=== PATIENT | female | born 1990 | race Caucasian/White ===

== ENCOUNTER 2017-10-05 19:25 | Emergency (ER) | payer BC ==
--- NOTE | 2017-10-05 19:33 | PDOC ---
Rapid Medical Evaluation Time Seen by Provider: 10/05/17 19:29 Medical Evaluation: 10/05/17 19:29 I have performed a brief in-person evaluation of this patient. The patient presents with a chief complaint of: with lower abdominal pain and vaginal bleeding Pertinent physical exam findings: deferred I have ordered the following: CBC, CMP, Beta HCG, TVUS, UA, Urine cx The patient will proceed to the ED for further evaluation. Discharge Disposition - Diagnosis Vaginal bleeding - Referrals - Patient Instructions - Post Discharge Activity
[2017-10-05 19:34] VITALS: BP 115/70; PULSE 90; TEMP 98.6; BMI 22.8
[2017-10-05 20:20] LABS: BASO % 0.4 % (0-2.0); EOS % 3.4 % (0-4.5); HEMATOCRIT 29.2 % (32.4-45.2); HEMOGLOBIN 9.8 GM/dL (10.7-15.3); LYMPH % 27.7 % (8-40); MCH 27.9 pg (25.7-33.7); MCHC 33.6 g/dl (32.0-36.0); MEAN CELL VOLUME 82.9 fl (80-96); MEAN PLT VOLUME 10.5 fl (7.5-11.1); MONO % 9.3 % (3.8-10.2); NEUT % 59.2 % (42.8-82.8); PLATELET COUNT 183 K/MM3 (134-434); RBC 3.52 M/mm3 (3.60-5.2); WHITE BLOOD COUNT 7.6 K/mm3 (4.0-10.0)
[2017-10-05 20:24] LABS: URINE APPEARANCE CLEAR; URINE BILIRUBIN NEGATIVE (<2.0 mg/dL); URINE COLOR STRAW; URINE GLUCOSE (UA) NEGATIVE (NEGATIVE); URINE KETONE NEGATIVE (NEGATIVE); URINE LEUK ESTERASE NEGATIVE (NEGATIVE); URINE NITRITE NEGATIVE (NEGATIVE); URINE PROTEIN NEGATIVE (NEGATIVE); URINE UROBILINOGEN NEGATIVE mg/dL (0.2-1.0)
[2017-10-05 20:27] LABS: EPI CELLS RARE /HPF (FEW); URINE MUCUS RARE
[2017-10-05 20:54] LABS: ALBUMIN 4.1 g/dl (3.4-5.0); ANION GAP 5 (8-16); BILIRUBIN,TOTAL 0.3 mg/dL (0.2-1.0); BLOOD UREA NITROGEN 10 mg/dL (7-18); CALCIUM 8.8 mg/dL (8.5-10.1); CHLORIDE 108 mmol/L (98-107); CO2 26 mmol/L (21-32); CREATININE 0.5 mg/dL (0.55-1.02); GLUCOSE,RANDOM 84 mg/dL (74-106); POTASSIUM 4.1 mmol/L (3.5-5.1); SGOT/AST 12 U/L (15-37); SGPT/ALT 16 U/L (12-78); SODIUM 139 mmol/L (136-145); TOT PROT 7.7 g/dl (6.4-8.2)
[2017-10-05 21:11] LABS: ALK PHOS 48 U/L (45-117)
--- NOTE | 2017-10-05 22:27 | PDOC ---
History of Present Illness - General Chief Complaint: Vaginal Bleeding Stated Complaint: VAGINAL BLEEDING () Time Seen by Provider: 10/05/17 19:29 History Source: Patient Exam Limitations: No Limitations - History of Present Illness Travel History: No Initial Comments: 10/05/17 22:22 This is a 27-year-old prima female who presents emergency Department with 3-4 days of lower abdominal cramping and vaginal bleeding. She reports she' s been using one pad daily and her bleeding is consistent with her usual menstrual period. Patient states she has irregular menses with the last menstrual period on 07/25. Patient states she was unable scheduled appointment with her director of contracts and visited [facility] approximately one week ago and was told she was at that time. Patient had positive home test and is a positive beta hCG with [facility] but does not remember the number. Patient states ultrasound and a [facility] did not show an IUP at that time. Past History - Past Medical History Allergies/Adverse Reactions: Allergies Allergy/AdvReac Type Severity Reaction Status Date / Time No Known Allergies Allergy Verified 10/05/17 19:30 Home Medications: Ambulatory Orders NK [No Known Home Medication] 10/05/17 COPD: No - Surgical History Cholecystectomy: Yes - Suicide/Smoking/Psychosocial Hx Smoking History: Never smoked Review of Systems - Review of Systems Able to Perform ROS?: Yes Is the patient limited [place] proficient: No Constitutional: No: Symptoms Reported HEENTM: No: Symptoms Reported Respiratory: No: Symptoms reported Cardiac (ROS): Yes: Palpitations. No: Symptoms Reported : No: Symptoms Reported Musculoskeletal: No: Symptoms Reported Integumentary: No: Symptoms Reported Neurological: No: Symptoms reported *Physical Exam - Vital Signs Last Vital Signs Temp Pulse Resp BP Pulse Ox 98.6 F 90 16 115/70 100 10/05/17 19:33 10/05/17 19:33 10/05/17 19:33 10/05/17 19:33 10/05/17 19:33 - Physical Exam General Appearance: Yes: Appropriately Dressed. No: Apparent Distress HEENT: positive: Normal ENT Inspection Neck: positive: Trachea midline, Supple Respiratory/Chest: positive: Lungs Clear, Normal Breath Sounds. negative: Respiratory Distress, Accessory Muscle Use Cardiovascular: positive: Regular Rhythm, Regular Rate, S1, S2. negative: Edema , Murmur Gastrointestinal/Abdominal: positive: Normal Bowel Sounds, Soft. negative: Tender Musculoskeletal: positive: Normal Inspection. negative: CVA Tenderness Extremity: positive: Normal Capillary Refill, Normal Inspection. negative: Normal Range of Motion, Tender Integumentary: positive: Normal Color, Dry, Warm Neurologic: positive: Alert, Normal Response ED Treatment Course - LABORATORY CBC & Chemistry Diagram: 10/05/17 19:46 10/05/17 19:46 - ADDITIONAL ORDERS Additional order review: Laboratory Results 10/05/17 10/05/17 19:54 19:46 Sodium 139 Potassium 4.1 Chloride 108 H Carbon Dioxide 26 Anion Gap 5 L BUN 10 Creatinine 0.5 L Creat Clearance w eGFR > 60 Random Glucose 84 Calcium 8.8 Total Bilirubin 0.3 AST 12 L ALT 16 Alkaline Phosphatase 48 Total Protein 7.7 Albumin 4.1 Beta HCG, Quant 1389.9 Urine Color Straw Urine Appearance Clear Urine pH 8.0 Ur Specific Triplett 1.009 Urine Protein Negative Urine Glucose (UA) Negative Urine Ketones Negative Urine Blood 3+ H Urine Nitrite Negative Urine Bilirubin Negative Urine Urobilinogen Negative Ur Leukocyte Esterase Negative Urine WBC (Auto) 5 Urine RBC (Auto) 133 Ur Epithelial Cells Rare Urine Mucus Rare 10/05/17 19:46 RBC 3.52 L MCV 82.9 MCHC 33.6 RDW 15.0 MPV 10.5 Neutrophils % 59.2 Lymphocytes % 27.7 Monocytes % 9.3 Eosinophils % 3.4 Basophils % 0.4 - RADIOLOGY Radiology Studies Ordered: Category Date Time Status TRANSVAGINAL US PREG [US] Stat Ultrasound 10/05/17 19:31 Taken Medical Decision Making - Medical Decision Making 10/05/17 22:38 A/P: 27-year-old prima with lower abdominal cramping and vaginal bleeding for the past 4 days blood with clots noted in vaginal vault. Cervical os is closed No adnexal tenderness No CMT Labs, transvaginal ultrasound 10/05/17 22:39 H&H is 9.8/29.7 Beta-HCG 1389.9 UA with blood noted 10/05/17 22:45 Transvaginal ultrasound is read by Dr. Meraz: No intrauterine gestational sac is identified. Right adnexal masslike density measuring 3.2 x 2.2 cm with small focal hypoechoic/anechoic center. No pole is identified. Findings are suspicious for ectopic . However correlation with serial quantitative beta hCGs and follow-up ultrasound was recommended for further evaluation. Patient is COOKER TENDER is Dr. Boyce. We'll contact Dr. Boyce. 10/05/17 23:[address] Han who recommends methotrexate 50 mg per BSA. I will give the patient methotrexate as prescribed. Blood type O+. Patient instructed to return to emergency department on Tuesday for repeat beta testing, keep her appointment with Dr. Yañez on 10/10 and for repeat blood testing next Tuesday. Patient verbalized understanding of all instructions *DC/Admit/Observation/Transfer Diagnosis at time of Disposition: Ectopic Qualifiers: Location of ectopic : unspecified location Intrauterine status: without intrauterine Qualified Code(s): O00.90 - Unspecified ectopic without intrauterine - Discharge Dispostion Disposition: HOME Condition at time of disposition: Stable Decision to Admit order: No - Referrals Referrals: Tigre Klein MD [Primary Care Provider] - - Patient Instructions Printed Discharge Instructions: DI for Ectopic Additional Instructions: Return to the emergency department on Tuesday for repeat blood testing. Keep her appointment as previously scheduled with your COOKER TENDER on Tuesday. Return to emergency department for repeat blood testing again on Tuesday. You have been given methotrexate today. He can expect to have vaginal bleeding and lower abdominal cramping as a result of this medication. Take Tylenol as needed for pain. Follow rock lather's instructions for appropriate dosage Return to emergency department for any fevers, chills, worsening pain or any other concerns. - Post Discharge Activity
[2017-10-05] MEDS ORDERED: METHOTREXATE SODIUM/PF 25 MG/ML VIAL IM ONE (23:23)
== END 2017-10-06 00:30 | disposition home or self-care (01) ==
LOC: JER 19:25
PROC: 3E023GC Introduction of Other Therapeutic Substance into Muscle, Percutaneous Approach (ICD-10-PCS; principal; 2017-10-05)
DX: O26.891 Other specified pregnancy related conditions, first trimester (principal); O00.80 Other ectopic pregnancy without intrauterine pregnancy; Z3A.00 Weeks of gestation of pregnancy not specified
CPT/HCPCS: 36415; 76817-TC; 80053; 81003; 81015; 84702; 85025; 86850; 86900; 86901; 87086; 99283-25; J9260

== ENCOUNTER 2017-10-09 16:01 | Emergency (ER) | payer BC ==
[2017-10-09 16:08] VITALS: BP 101/54; PULSE 94; TEMP 98.1; BMI 22.8
--- NOTE | 2017-10-09 16:10 | PDOC ---
History of Present Illness - General Chief Complaint: [facility] [place] Stated Complaint: LAB WORK Time Seen by Provider: 10/09/17 16:08 History Source: Patient, Old Records Exam Limitations: No Limitations - History of Present Illness Travel History: No Initial Comments: 10/09/17 16:29 This is a 27-year-old woman presents emergency department for reevaluation of beta and repeat ultrasound status post methotrexate injection. Previous ultrasound revealed a right adnexal mass examination was consistent with a complete . Patient is scheduled to see her head of english tomorrow for reevaluation. Patient denies any vaginal bleeding at this time. Patient has no abdominal cramping at this time. Past History - Past Medical History Allergies/Adverse Reactions: Allergies Allergy/AdvReac Type Severity Reaction Status Date / Time No Known Allergies Allergy Verified 10/09/17 16:04 Home Medications: Ambulatory Orders NK [No Known Home Medication] 10/05/17 COPD: No Other medical history: denies. - Surgical History Cholecystectomy: Yes - Reproductive History (#): 1 Para: 0 - Suicide/Smoking/Psychosocial Hx Smoking History: Former smoker Have you smoked in the past 12 months: No Information on smoking cessation initiated: No Review of Systems - Review of Systems Able to Perform ROS?: Yes Is the patient limited [place] proficient: No Constitutional: No: Symptoms Reported HEENTM: No: Symptoms Reported Respiratory: No: Symptoms reported Cardiac (ROS): No: Symptoms Reported ABD/GI: Yes: See HPI : No: Symptoms Reported Musculoskeletal: No: Symptoms Reported Integumentary: No: Symptoms Reported Neurological: No: Symptoms reported *Physical Exam - Vital Signs Last Vital Signs Temp Pulse Resp BP Pulse Ox 98.1 F 94 H 15 101/54 100 10/09/17 16:04 10/09/17 16:04 10/09/17 16:04 10/09/17 16:04 10/09/17 16:04 - Physical Exam General Appearance: Yes: Appropriately Dressed. No: Apparent Distress HEENT: positive: Normal ENT Inspection Neck: positive: Trachea midline, Supple Respiratory/Chest: positive: Lungs Clear, Normal Breath Sounds. negative: Respiratory Distress, Accessory Muscle Use Cardiovascular: positive: Regular Rhythm, Regular Rate. negative: Murmur Gastrointestinal/Abdominal: positive: Normal Bowel Sounds, Soft. negative: Tender Musculoskeletal: positive: Normal Inspection. negative: CVA Tenderness Extremity: positive: Normal Inspection Integumentary: positive: Normal Color, Dry, Warm Neurologic: positive: Alert, Normal Response ED Treatment Course - LABORATORY CBC & Chemistry Diagram: 10/09/17 16:19 - RADIOLOGY Radiology Studies Ordered: Category Date Time Status TRANSVAGINAL US PREG [US] Stat Ultrasound 10/09/17 16:09 Ordered Medical Decision Making - Medical Decision Making 10/09/17 16:31 A/P: 27-year-old prima who presents emergency Department for repeat lab testing and ultrasound status post methotrexate injection Abdomen soft nontender nondistended Patient reports no abdominal cramping or vaginal bleeding at this time Beta-HCG 1389.9 on previous visit. Transvaginal ultrasound revealed a 3.2 cm x 2.2 cm right adnexal mass consistent with ectopic . CBC, beta hCG, transvaginal ultrasound Reassess 10/09/17 17:51 Hemoglobin is increased from 9.8-10.3 over the past 4 days. Beta hCG is increased to 1543.8 over the past 4 days. Patient received methotrexate on previous visit. I will contact the patient's GANG RIDER Dr. Short to discuss patient' s options until she is able to follow-up tomorrow. 10/09/17 18:09 Preliminary read of transvaginal ultrasound by imaging implementation technician: There is a solid right adnexal mass measuring 3.4 x 2.2 x 3.2 cm which is concerning for an ectopic gestation the setting of positive test and no demonstrable intrauterine gestation. There is a small to moderate amount of simple fluid in the posterior cul-de-sac. call placed to Dr. Bernardo. 10/09/17 18:[address] Curtis who was on-call for [facility] GANG RIDER today. Dr. Curtis states laboratory results and ultrasound testing are normal for this stage after receiving the methotrexate. He directed me to have the patient follow-up as previous scheduled with her GANG RIDER on Tuesday. *DC/Admit/Observation/Transfer Diagnosis at time of Disposition: Ectopic Qualifiers: Location of ectopic : unspecified location Intrauterine status: without intrauterine Qualified Code(s): O00.90 - Unspecified ectopic without intrauterine - Discharge Dispostion Disposition: HOME Condition at time of disposition: Fair Decision to Admit order: No - Referrals Referrals: Latoya,Tigre C, MD [Primary Care Provider] - - Patient Instructions Additional Instructions: Keep her appointment as previously scheduled with your GANG RIDER on Tuesday. Return to emergency department for repeat blood testing again on Tuesday. Take Tylenol as needed for pain. Follow apparatus repair mechanic's instructions for appropriate dosage Return to emergency department for any fevers, chills, worsening pain or any other concerns. - Post Discharge Activity
[2017-10-09 16:25] LABS: BASO % 0.6 % (0-2.0); EOS % 5.2 % (0-4.5); HEMATOCRIT 30.1 % (32.4-45.2); HEMOGLOBIN 10.3 GM/dL (10.7-15.3); LYMPH % 29.2 % (8-40); MCH 28.3 pg (25.7-33.7); MCHC 34.3 g/dl (32.0-36.0); MEAN CELL VOLUME 82.5 fl (80-96); MEAN PLT VOLUME 9.4 fl (7.5-11.1); MONO % 7.8 % (3.8-10.2); NEUT % 57.2 % (42.8-82.8); PLATELET COUNT 194 K/MM3 (134-434); RBC 3.65 M/mm3 (3.60-5.2); RDW 14.9 % (11.6-15.6); WHITE BLOOD COUNT 5.5 K/mm3 (4.0-10.0)
== END 2017-10-09 19:02 | disposition home or self-care (01) ==
LOC: JERFT 16:01
DX: O00.90 Unspecified ectopic pregnancy without intrauterine pregnancy (principal); Z3A.00 Weeks of gestation of pregnancy not specified
CPT/HCPCS: 36415; 76817-TC; 84702; 85025; 99281-25

== ENCOUNTER 2017-10-12 17:20 | Emergency (ER) | payer BC ==
--- NOTE | 2017-10-12 17:45 | PDOC ---
Rapid Medical Evaluation Medical Evaluation: Allergies Allergy/AdvReac Type Severity Reaction Status Date / Time No Known Allergies Allergy Verified 10/12/17 17:44 10/12/17 17:44 I have performed a brief in-person evaluation of this patient. The patient presents with a chief complaint of: , dx w/ ectopic 10/05/17 w/ beta of 1K, received methotrexate, returned 10/09 w/ beta of 1500 but did not get 2nd injection, rpt US w/ R adnexal mass, no IUP, unchanged from US 10/05. Seen by Seferino today w/ beta of 600 and states she was sent in for 2nd methotrexate injection Pertinent physical exam findings:stable I have ordered the following: nothing The patient will proceed to the ED for further evaluation. Discharge Disposition - Diagnosis Ectopic Qualifiers: Location of ectopic : unspecified location Intrauterine status: without intrauterine Qualified Code(s): O00.90 - Unspecified ectopic without intrauterine - Referrals - Patient Instructions - Post Discharge Activity
[2017-10-12 17:46] VITALS: BP 107/48; PULSE 98; TEMP 98.6; BMI 22.8
--- NOTE | 2017-10-12 18:39 | PDOC ---
History of Present Illness - General Chief Complaint[place] [facility] [place] Complaint: PCP SENT Time Seen by Provider: 10/12/17 18:27 - History of Present Illness Initial Comments: 27-year-old female here for methotrexate injection after being diagnosed with an ectopic . He has no complaints pain at this time 10/12/17 18:37 Past History - Past Medical History Allergies/Adverse Reactions: Allergies Allergy/AdvReac Type Severity Reaction Status Date / Time No Known Allergies Allergy Verified 10/12/17 17:44 Home Medications: Ambulatory Orders NK [No Known Home Medication] 10/05/17 COPD: No - Surgical History Cholecystectomy: Yes - Reproductive History (#): 1 Para: 0 - Suicide/Smoking/Psychosocial Hx Smoking History: Never smoked Have you smoked in the past 12 months: No Review of Systems - Review of Systems All Other Systems: Reviewed and Negative *Physical Exam - Vital Signs Last Vital Signs Temp Pulse Resp BP Pulse Ox 98.6 F 98 H 18 107/48 99 10/12/17 17:44 10/12/17 17:44 10/12/17 17:44 10/12/17 17:44 10/12/17 17:44 - Physical Exam General Appearance: Yes: Nourished HEENT: positive: Normal Voice Neck: positive: Trachea midline Respiratory/Chest: negative: Respiratory Distress Musculoskeletal: positive: Normal Inspection Integumentary: positive: Normal Color Neurologic: positive: Fully Oriented, Alert Medical Decision Making - Medical Decision Making Phone calls been placed to the patient's CAREER TECHNOLOGY TEACHER for recommendations on methotrexate injection 10/12/17 18:38 10/12/17 19:[address] Rosales from [employer]CHN[employer] who has advised me on the dose of Methotrexate. Pt will f/u with gynecological assistant in 1 day *DC/Admit/Observation/Transfer Diagnosis at time of Disposition: Ectopic Qualifiers: Location of ectopic : unspecified location Intrauterine status: without intrauterine Qualified Code(s): O00.90 - Unspecified ectopic without intrauterine - Discharge Dispostion Disposition: HOME Condition at time of disposition: Stable Decision to Admit order: No - Referrals Referrals: Tigre Klein MD [Primary Care Provider] - Miki Bernardo MD [Staff Physician] - - Patient Instructions Additional Instructions: I will up with your doctor tomorrow. Return to the emergency room if your symptoms worsen or you experience any abdominal pain. - Post Discharge Activity
[2017-10-12] MEDS ORDERED: METHOTREXATE SODIUM/PF 25 MG/ML VIAL IM ONE (19:05)
== END 2017-10-12 19:30 | disposition home or self-care (01) ==
LOC: JERFT 17:20
PROC: 3E023GC Introduction of Other Therapeutic Substance into Muscle, Percutaneous Approach (ICD-10-PCS; principal; 2017-10-12)
DX: O00.90 Unspecified ectopic pregnancy without intrauterine pregnancy (principal)
CPT/HCPCS: 99281-25; J9260

== ENCOUNTER 2020-07-25 06:09 | Day surgery (SDC) | payer BC ==
[2020-07-24 13:17] VITALS: BMI 23.2
[2020-07-25 11:05] LABS: INR 0.98 (0.83-1.09); PROTHROMBIN TIME (PATIENT) 12.1 SEC (9.7-13.0)
[2020-07-25] MEDS ORDERED: MIDAZOLAM HCL 2 MG/2 ML SINGLE DOSE VIAL ONE (11:17)
[2020-07-25] MEDS ORDERED: PROPOFOL 20 ML ONE ×2 (11:17→12:00)
[2020-07-25] MEDS ORDERED: LIDOCAINE 1%/EPI 1:100000 (50 ML MULTI DOSE VIAL) ONE (11:17)
[2020-07-25] MEDS ORDERED: THROMBIN (BOVINE) 5,000 UNIT VIAL TP ONE (11:17)
[2020-07-25] MEDS ORDERED: SUCCINYLCHOLINE CHLORIDE 200 MG/10 ML SYRINGE ONE (11:17)
[2020-07-25] MEDS ORDERED: fentaNYL CITRATE 250 MCG/5 ML VIAL ONE (11:17)
[2020-07-25] MEDS ORDERED: DEXAMETHASONE SOD PHOSPHATE 4 MG/1 ML VIAL ONE (11:46)
[2020-07-25] MEDS ORDERED: ceFAZolin SODIUM 1 GM VIAL IVPB ONE (11:51)
[2020-07-25] MEDS ORDERED: LIDOCAINE 1%/EPI 1:100000 (20 ML MULTI DOSE VIAL) IJ ONE (12:05)
[2020-07-25] MEDS ORDERED: ACETAMINOPHEN INJECTION 100 ML IVPB ONE (12:38)
[2020-07-25] MEDS ORDERED: ceFAZolin SODIUM 1 GM VIAL ONE (12:41)
[2020-07-25] MEDS ORDERED: EPHEDRINE SULFATE/0.9% NACL/PF 50 MG/10 ML SYRINGE NR ONE (13:05)
[2020-07-25] MEDS ORDERED: LACTATED RINGERS SOLUTION 1,000 ML IV SCH (13:15)
[2020-07-25] MEDS ORDERED: MEPERIDINE HCL 25 MG/ML VIAL ONE (13:21)
[2020-07-25] MEDS ORDERED: ONDANSETRON 4 MG/2 ML VIAL IVPUSH PRN (13:34)
[2020-07-25] MEDS ORDERED: MEPERIDINE HCL 25 MG/ML VIAL IVPUSH ONE (15:25)
[2020-07-25 16:21] VITALS: TEMP 98.4
[2020-07-25 17:28] VITALS: BP 116/62; PULSE 103
== END 2020-07-25 17:15 | disposition home or self-care (01) ==
LOC: JASU-SURG 06:09
PROVIDERS: ATTEND Surgery
PROC: 0GSL0ZZ Reposition Right Superior Parathyroid Gland, Open Approach (ICD-10-PCS; 2020-07-25)
PROC: 0GTH0ZZ Resection of Right Thyroid Gland Lobe, Open Approach (ICD-10-PCS; principal; 2020-07-25 11:30)
DX: C73 Malignant neoplasm of thyroid gland (principal)
CPT/HCPCS: 36415; 81025; 85610; 88307-TC; 88331-TC; 93005; 93010; 94760; J0131